=== PATIENT | male | born 1995 | race Hispanic/Latino ===

== ENCOUNTER 2019-11-13 23:49 | Emergency (ER) | payer MEDICAID ==
[2019-11-14] MEDS ORDERED: ACETAMINOPHEN EXTRA STRENGTH 500 MG TABLET ONE (00:05)
== END 2019-11-14 00:26 | disposition home or self-care (01) ==
LOC: EDH 23:49
DX: B34.9 Viral infection, unspecified (principal); J98.9 Respiratory disorder, unspecified
CPT/HCPCS: 36415; 87633; 87804

== ENCOUNTER 2021-04-17 00:46 | Emergency (ER) | payer MEDICAID ==
[~2021-04-17] VITALS: Ht 175.3 cm; Wt 113.4 kg
[2021-04-17 00:56] VITALS: BP 142/102
[2021-04-17] MEDS ORDERED: IBUPROFEN 600 MG TABLET PO ONE (01:30)
[2021-04-17] MEDS ORDERED: CYCLOBENZAPRINE HCL 10 MG TABLET PO ONE (01:30)
[2021-04-17] MEDS ORDERED: ACETAMINOPHEN 500 MG TABLET PO ONE (01:30)
[2021-04-17] MEDS ORDERED: ONDA4TAB10 PO (02:05)
[2021-04-17 02:14] VITALS: BP 136/93
== END 2021-04-17 02:31 | disposition home or self-care (01) ==
LOC: EDH 00:46
DX: B34.9 Viral infection, unspecified (principal); R11.0 Nausea; Z20.822 Contact with and (suspected) exposure to COVID-19; I10 Essential (primary) hypertension; Z79.1 Long term (current) use of non-steroidal anti-inflammatories (NSAID); Z79.899 Other long term (current) drug therapy
CPT/HCPCS: 87635; 87804 ×2; 99284; C9803